=== PATIENT | female | born 1965 | race African-American/Black ===

== ENCOUNTER 2018-09-11 12:46 | Emergency (ER) | payer OTHER ==
[~2018-09-11] VITALS: Ht 160 cm; Wt 80.7 kg
[2018-09-11 13:01] VITALS: BP 161/78
--- NOTE | 2018-09-11 13:06 | NUR ---
VOMITTED WHILE IN TRIAGE
--- NOTE | 2018-09-11 13:08 | NUR ---
Patient transferred to bed 3 via wheelchair by tech. RN evaluating patient at bedside.
[2018-09-11] MEDS ORDERED: MORPHINE SULFATE 4 MG/ML SYR IVP ONE (14:00)
[2018-09-11] MEDS ORDERED: NACL 0.9% 1,000 ML IV ONE (14:00)
[2018-09-11 14:39] LABS: BASOPHILS # (AUTO) 0.1 K/uL (0.00-0.22); BASOPHILS % (AUTO) 0.5 % (0.0-2.0); EOSINOPHILS % (AUTO) 0.1 % (0.0-4.0); HEMATOCRIT 38.4 % (36-48); LYMPHOCYTES % (AUTO) 7.8 % (20.5-51.1); MEAN CORPUSCULAR HEMOGLOBIN 33 pg (27-31); MEAN CORPUSCULAR HGB CONC 34 g/dL (33-37); MEAN CORPUSCULAR VOLUME 98.5 fL (80-94); MONOCYTES # (AUTO) 0.5 K/uL (0.8-1.0); MONOCYTES % (AUTO) 3.8 % (1.7-9.3); NEUTROPHILS # (AUTO) 10.9 K/uL (1.8-7.7); NEUTROPHILS % (AUTO) 87.8 % (42.2-75.2); PLATELET COUNT (AUTO) 209 K/uL (140-450); RED CELL DISTRIBUTION WIDTH 13.7 % (11.6-13.7); WHITE BLOOD COUNT (AUTO) 12.4 K/uL (4.8-10.8)
[2018-09-11] MEDS ORDERED: ONDANSETRON 4 MG/2 ML VIAL IVP ONE (14:45)
--- NOTE | 2018-09-11 14:45 | NUR ---
PER PATIENT,WOKE UP VOMITING AND DIARRHEA SEVERAL TIMES TODAY WITH ABD. PAIN. DENIES HX, DENIES MEDS.
[2018-09-11 14:55] LABS: CARBON DIOXIDE 26.6 mmol/L (21-32); CREATININE 0.9 mg/dL (0.6-1.3); POTASSIUM 3.6 mmol/L (3.5-5.1)
--- NOTE | 2018-09-11 15:00 | NUR ---
PATIENT RESTING IN BED AT THIS TIME.
[2018-09-11 15:01] LABS: TOTAL BILIRUBIN 0.5 mg/dL (0.0-1.0)
--- NOTE | 2018-09-11 16:00 | NUR ---
PATIENT RESTING AT THIS TIME. NO SIGNS OF DISTRESS.
[2018-09-11 16:26] LABS: APPEARANCE,URINE CLEAR (CLEAR); BILIRUBIN,URINE NEGATIVE (NEGATIVE); BLOOD, URINE NEGATIVE (NEGATIVE); COLOR,URINE DARK YELLOW (YELLOW); LEUKOCYTE ESTERASE ,URINE NEGATIVE (NEGATIVE); NITRITE, URINE NEGATIVE (NEGATIVE); UGLUCOSE NEGATIVE (NEGATIVE)
--- NOTE | 2018-09-11 17:00 | NUR ---
PATIEN RESTING AT THIS TIME. NO SIGNS OF DISTRESS.
--- NOTE | 2018-09-11 18:00 | NUR ---
PATIENT RESTING AT THIS TIME. NO SIGNS OF DISTRESS.
--- NOTE | 2018-09-11 18:20 | NUR ---
[facility] EMT CHAPERONED DR. TORREZ FOR RECTAL EXAM.
[2018-09-11 18:45] VITALS: BP 137/88
--- NOTE | 2018-09-11 18:45 | NUR ---
Patient discharged with v/s stable. Written and verbal after care instructions given and explained. Patient verbalized understanding. Ambulatory with steady gait. All questions addressed prior to discharge. Advised to follow up with PMD.
== END 2018-09-11 18:45 | disposition home or self-care (01) ==
LOC: MED 12:46
DX: K52.9 Noninfective gastroenteritis and colitis, unspecified (principal); I10 Essential (primary) hypertension; Z90.710 Acquired absence of both cervix and uterus
CPT/HCPCS: 36415; 74177; 80053; 81003; 83690; 85025; 96361; 96374; 96375; 99284; J2270; J2405; J7030; Q9967

== ENCOUNTER 2019-06-08 19:18 | Emergency (ER) | payer OTHER ==
[~2019-06-08] VITALS: Ht 157.5 cm; Wt 73.5 kg
[2019-06-08 19:20] VITALS: BP 122/70
--- NOTE | 2019-06-08 19:23 | NUR ---
TO LOBBY A/W AMBULATORY
[2019-06-08 20:45] VITALS: BP 156/88
--- NOTE | 2019-06-08 20:45 | NUR ---
PT WAS REASSESED. PT STATED THAT SHE WAS HAVING CHEST PAIN/BURNING SENSATION. VITALS STABLE, EKG ORDERED.
--- NOTE | 2019-06-08 21:15 | NUR ---
PT CALLLED IN LOBBY AND OUTSIDE WITH NO ANSWER.
--- NOTE | 2019-06-08 21:20 | NUR ---
PT CALLLED IN LOBBY AND OUTSIDE WITH NO ANSWER. PATIENT LEFT WITHOUT BEING SEEN BY DR. CROW. NO FURTHER CARE PROVIDED FOR PATIENT.
== END 2019-06-08 21:15 | disposition left against medical advice (07) ==
LOC: MED 19:18
DX: M25.562 Pain in left knee (principal); M25.561 Pain in right knee; Z53.21 Procedure and treatment not carried out due to patient leaving prior to being seen by health care provider; R94.31 Abnormal electrocardiogram [ECG] [EKG]
CPT/HCPCS: 93005; 99281; 99283

== ENCOUNTER 2019-06-17 06:38 | Emergency (ER) | payer OTHER ==
[~2019-06-17] VITALS: Ht 160 cm; Wt 85.7 kg
[2019-06-17 06:40] VITALS: BP 157/85
--- NOTE | 2019-06-17 06:40 | NUR ---
to bed # 02 via wheelchair.
--- NOTE | 2019-06-17 06:52 | NUR ---
53 Y/O FEMALE PLACED IN BED 02 C/O RIGHT KNEE PAIN SECONDARY TO A FALL 5 DAYS AGO
[2019-06-17] MEDS ORDERED: KETOROLAC 30 MG/ML VIAL IM ONE (07:20)
--- NOTE | 2019-06-17 07:27 | NUR ---
Xray at bedside
--- NOTE | 2019-06-17 07:38 | NUR ---
Pt resting in bed awake and alert. Pt updated on plan of care. Will continue to monitor.
--- NOTE | 2019-06-17 08:18 | NUR ---
Crutches dispensed. Taught proper use, patient returned demo.
--- NOTE | 2019-06-17 08:18 | NUR ---
EMT at bedside applying hannah wrap to right knee
--- NOTE | 2019-06-17 08:20 | NUR ---
applied hannah wrap to right knee without any issues. pt demonstrated proper use of crutches without any issues
--- NOTE | 2019-06-17 08:25 | NUR ---
Patient discharged with v/s stable. Written and verbal after care instructions given and explained. Pt educated to apply ice, elevate, and rest knee. Patient alert, oriented and verbalized understanding of instructions. Ambulatory with steady gait. All questions addressed prior to discharge. ID band removed. Patient advised to follow up with PMD. Rx of Voltaren 1% Topic Gel was given. Patient educated on indication of medication including possible reaction and side effects. Opportunity to ask questions provided and answered.
[2019-06-17 08:27] VITALS: BP 157/85
== END 2019-06-17 08:25 | disposition home or self-care (01) ==
LOC: MED 06:38
DX: S83.91XA Sprain of unspecified site of right knee, initial encounter (principal); M25.461 Effusion, right knee; F17.200 Nicotine dependence, unspecified, uncomplicated; I10 Essential (primary) hypertension; Z98.890 Other specified postprocedural states; W10.9XXA Fall (on) (from) unspecified stairs and steps, initial encounter; Y93.89 Activity, other specified; Y92.89 Other specified places as the place of occurrence of the external cause; Y99.8 Other external cause status
CPT/HCPCS: 73562; 96372; 99283; J1885; 29505

== ENCOUNTER 2019-10-11 21:09 | Emergency (ER) | payer OTHER ==
[~2019-10-11] VITALS: Ht 160 cm; Wt 83.9 kg
[2019-10-11 21:14] VITALS: BP 157/109
--- NOTE | 2019-10-11 21:39 | NUR ---
PT COMING IN WITH C/O NASAL CONGESTION X 3 DAY, STATES DISCHARGE IS CLEAR. DENIES SOB, + NONPRODUCTIVE COUGH X 1 DAY. PT HAD KNEE SURGERY 10/08/19 AND STATES AFTER SURGERY IS WHEN HER NOSE BECAME CONGESTED. WAS GIVEN NORCO FOR PAIN, BUT DENIES ANY PRIOR ALLERGIC REACTION TO NORCO. PT HAS USED DECONGESTANT AND FLONASE WITH NO RELIEF. AFEBRILE. LUNG SOUNDS CLEAR BILATERALLY. BED IN LOWEST POSITION and siderail up x 1 NKA MED HX - HLD
--- NOTE | 2019-10-11 22:00 | NUR ---
Patient discharged with v/s stable. Written and verbal after care instructions given and explained. Patient alert, oriented and verbalized understanding of instructions. Ambulatory with steady gait. All questions addressed prior to discharge. ID band removed. Patient advised to follow up with PMD. Rx of AZELASTINE HYDROCHLORIDE NASAL SPRAY given. Patient educated on indication of medication including possible reaction and side effects. Opportunity to ask questions provided and answered.
[2019-10-11 22:01] VITALS: BP 141/76
== END 2019-10-11 22:00 | disposition home or self-care (01) ==
LOC: MED 21:09
DX: J31.0 Chronic rhinitis (principal); E78.5 Hyperlipidemia, unspecified; F17.200 Nicotine dependence, unspecified, uncomplicated; I10 Essential (primary) hypertension; Z71.6 Tobacco abuse counseling
CPT/HCPCS: 99283